=== PATIENT | male | born 1945 | race Caucasian/White ===

== ENCOUNTER 2025-04-24 07:23 | Day surgery (SDC) | payer MEDICARE, OTHER ==
[2025-04-20 08:38] VITALS: BMI 22.3
[2025-04-24] MEDS ORDERED: Bupivacaine/Epinephrine 0.25% 30 ML VIAL ONE (07:45)
[2025-04-24] MEDS ORDERED: CEFAZOLIN 2 GM VIAL ONE ×2 (07:45→09:40)
[2025-04-24] MEDS ORDERED: Rocuronium Bromide 10 MG/ML (10ML VIAL) ONE (09:32)
[2025-04-24] MEDS ORDERED: PROPOFOL 20 ML ONE (09:32)
[2025-04-24] MEDS ORDERED: HYDROcodone/Acetaminophen 5/325 mg Tablet ONE (11:44)
== END 2025-04-24 12:25 | disposition home or self-care (01) ==
LOC: CSHSDC 07:23
PROVIDERS: ATTEND Surgery
PROC: 0YU54JZ Supplement Right Inguinal Region with Synthetic Substitute, Percutaneous Endoscopic Approach (ICD-10-PCS; principal; 2025-04-24)
DX: K40.90 Unilateral inguinal hernia, without obstruction or gangrene, not specified as recurrent (principal); I10 Essential (primary) hypertension; E78.5 Hyperlipidemia, unspecified; Z79.899 Other long term (current) drug therapy
CPT/HCPCS: 49650; 93005; A4314; C1781; J2704; S2900; 93010